=== PATIENT | female | born 1965 | race African-American/Black ===

== ENCOUNTER 2016-10-12 19:32 | Emergency (ER) | payer OTHER ==
[~2016-10-12] VITALS: Ht 170.2 cm; Wt 74.3 kg
[~2016-10-12 19:32] MED LIST: ABILIFY15 MG PO; Advair HFA 115/21 IH; Cymbalta PO; DESYREL100 MG PO; ENDOCET 5-3251 EACH PO; KEFLEX500 MG PO; Motrin PO; SEROQUEL XR300 MG PO; VIIBRYD40 MG PO
[2016-10-12] MEDS ORDERED: MOTRIN800 MG PO (22:36)
[2016-10-12] MEDS ORDERED: ULTRAM50 MG PO (22:36)
[2016-10-12 22:39] VITALS: BP 111/75
== END 2016-10-12 22:58 | disposition home or self-care (01) ==
LOC: EME 19:32
DX: M25.551 Pain in right hip (principal); E78.00 Pure hypercholesterolemia, unspecified; F17.200 Nicotine dependence, unspecified, uncomplicated
CPT/HCPCS: 73502; 99281; 99283